=== PATIENT | female | born 1970 | race Caucasian/White ===

== ENCOUNTER → 2018-01-11 | Outpatient (CLI) | payer BC, OTHER ==
[~2018-01-11] VITALS: Ht 170.2 cm; Wt 117.9 kg
[~2018-01-11] MED LIST: AMBIEN 5 MG TABL5 M1 PO; CLONAZEPAM 0.50.5 M1 PO; CYMBALTA60 MG PO; ESTRADIOL 1 MG T1 M1 PO; LASIX 20 MG TAB20 MG PO; LYRICA 50 MG50 MG PO; NEURONTIN 300300 M1 PO; PHENTERMINE HCL15 MG PO; PROTONIX40 M1 PO; REMICADE 1100 MG/VIA; SUMATRIPTAN SUC50 MG PO
--- NOTE | ~2018-01-11 | HPC ---
[facility] [place] [address] PAIN MANAGEMENT CONSULTATION Name: OBED CRUZ Room #: REG [facility].#: [id number] Admission: 01/11/18 Attend Phys: Reuben Spring MD Discharge: Date of : 68 Report #: [id number] THIS REPORT FOR: //name// CC: Nino Spring DATE OF SERVICE: 01/11/2018 HISTORY OF PRESENT ILLNESS: Followup visit for low back pain with radiculopathy and diffuse myofascial pain in addition to Crohn disease. The patient is here today for an epidural injection. She received an injection on 10/05/2017 and reported substantial improvement, which was sustained. She is now having recurrence of back pain and generalized achiness. Based upon her good and favorable response with a single injection in September, she is back. Today, she describes the pain in her low back radiating into her hips. It radiates all down into her Achilles. This follows an L5-S1 distribution. She also has pain in the hips. She complains of pain in addition across her low back and also neck pain with headaches. Pain score is a 6/10. Pain is exacerbated by bending, squatting, sitting for long periods of time. She does not like to walk too long and that increases her pain. We talked, however, about the importance of exercise. PAST MEDICAL HISTORY: Significant for Crohn disease, frequent diarrhea. She has intermittent abdominal pain. She has suffered in the past from depression and emotional problems, insomnia and nervousness. MEDICATIONS: Reviewed and reconciled. SOCIAL HISTORY: She denies use of tobacco or alcohol. She works as a acute care clinical nurse specialist. 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 Her pain impact scores are quite high. She scores 57/70 suggesting that in every category, she has interference of day-to-day activities. Hopefully, this will improve with pain treatment, but she also will need to work on wellness behaviors which at this point I think are really necessary involving exercise and weight loss. PHYSICAL EXAMINATION: GENERAL: She is a isaiah 47-year-old, always smiling. VITAL SIGNS: Blood pressure 125/85, heart rate 82, respirations 16. She is 5 feet 7 inches with a weight of 250 pounds for a BMI of 39.1. MUSCULOSKELETAL: She is able to move independently from sitting to standing [facility] [address] [place] [address] PAIN MANAGEMENT CONSULTATION Name: ANTHONYSHAYYOBED Magui Room #: REG [facility]#: [id number] Admission: 01/11/18 Attend Phys: Reuben Spring MD Discharge: Date of : 68 Report #: [id number] position, walks without antalgic features. She has pain across her low back with forward flexion and extension. Straight leg raising is mildly positive bilaterally. She has tenderness over the sacroiliac joint. She has tenderness across the lumbosacral segments. She has diffuse myofascial pain. IMPRESSION: 1. Chronic low back pain with radiculopathy. 2. Crohn disease, on Remicade. 3. Debility and obesity. She needs to exercise more and we discussed at previous visit. 4. History of depression, situational. RECOMMENDATION: Epidural steroid injection under fluoroscopic guidance. PROCEDURE: She was taken to fluoroscopic suite. She was placed in prone position. Skin was prepped with ChloraPrep. Skin was anesthetized over L4-L5 interspace. A 20-gauge Tuohy epidural needle advanced in the epidural space with loss of resistance technique. There was no blood or CSF aspirated. A 1 mL of Omnipaque was injected. Good spread of dye observed in the epidural space followed by 3 mL of 0.5% lidocaine mixed with 80 mg of triamcinolone. She tolerated the procedure well, was observed for 45 minutes and discharged with a followup visit planned as needed. <ELECTRONICALLY SIGNED> By: Reuben Spring MD 01/17/18 1640 [id number] Reuben Spring MD /nt
[2018-01-11 13:58] VITALS: BP 125/87
== END | disposition home or self-care (01) ==
LOC: PAIN 11-09 07:03
DX: M54.16 Radiculopathy, lumbar region (principal); M79.1 Myalgia; K50.90 Crohn's disease, unspecified, without complications; F32.9 Major depressive disorder, single episode, unspecified; Z68.39 Body mass index [BMI] 39.0-39.9, adult; E66.9 Obesity, unspecified

== ENCOUNTER → 2018-05-14 | Outpatient (CLI) | payer BC, OTHER ==
[~2018-05-14] VITALS: Ht 170.2 cm; Wt 115.4 kg
--- NOTE | ~2018-05-14 | HPC ---
[facility] [place] [address] PAIN MANAGEMENT CONSULTATION Name: OBED CRUZ Room #: REG [facility].#: [id number] Admission: 05/14/18 Attend Phys: Timothy Garcia DO Discharge: Date of : 68 Report #: [id number] THIS REPORT FOR: //name// CC: Nino Garcia HISTORY OF PRESENT ILLNESS: The patient is a 47-year-old female. She has been seen twice in the Pain Clinic, September 2017 and December of this year. She has had 2 lumbar epidural injections at L4-L5 with excellent improvement of baseline pain. She returns to pain clinic today noting pain has begun to recur across the low back and bilateral legs into the foot. She has paresthesia in bilateral feet. She has a component of myofascial pain and history of Crohn's disease. She also notes some increasing pain in her right knee. Notes going up or downstairs exacerbate some pain here. She has some chronic Achilles tendinitis. She works as a special educational psychology teacher, has continued to work despite pain. Pain impact score is fairly high as pain does interfere with function; however, she continued to work despite pain. PHYSICAL EXAMINATION: GENERAL: Notes a pleasant 47-year-old female. VITAL SIGNS: BMI is 39 kilograms per meter squared. Vital signs stable as noted in the EMR. NEUROLOGICAL: Cranial nerves 2 through 12 grossly intact. Pupils equal, react to light and accommodation. Extraocular muscles are intact. MUSCULOSKELETAL: Rises from chair using armrests with modestly antalgic gait. Trace ballottable edema in the right knee. The ligaments appear intact. There is no crepitance with patellar deviation, simply subjective pain with weightbearing on steps. Her gait is generally tandem and modestly positive straight leg raise bilaterally. Symptoms little worse on the right than the left. Plantar flexion strength is modestly diminished. DIAGNOSTIC STUDIES: There are no recent diagnostic studies available to evaluate. ASSESSMENT: 1. Symptomatic lumbar radiculopathy by clinical exam and history. She has had excellent greater than 70% relief for multiple months following 2 prior injections at L4-L5. 2. Component of lumbar spondylosis with some axial back pain. 3. Degenerative joint disease, right knee. The patient will be referred to [facility]. RECOMMENDATION: Epidural injection under fluoroscopy today. Follow up simply as needed. Did refer to physical therapy for some core strengthening, range of motion and general fitness exercises. [address] [address] PAIN MANAGEMENT CONSULTATION Name: OBED CRUZ Room #: REG [facility] Cyn[facility]#: [id number] Admission: 05/14/18 Attend Phys: Timothy Garcia DO Discharge: Date of : 68 Report #: [id number] PROCEDURE: Lumbar epidural injection under fluoroscopy. PROCEDURE: Lumbar epidural steroid injection. PROCEDURE NOTE: After both written and informed consent to include risk of spinal cord damage, increased pain, weakness and dural puncture, the patient was taken to the fluoroscopy suite, placed in the prone position. After sterile prep and drape, a skin wheal with lidocaine was raised. A 4-1/2 inch 20-gauge epidural Tuohy needle was inserted in the midline at L4-L5 with good loss to resistance. Negative aspiration for cerebrospinal fluid or blood was noted. Then 1 mL of Omnipaque under biplanar fluoroscopy showed good spread within the epidural space. This was followed with 80 mg of triamcinolone plus 1 mL of 1.5% preservative-free Xylocaine, 0.5 mL Xylocaine was then injected to flush the needle; it was removed. The patient was monitored for an appropriate period of time and discharged in good and stable condition. <ELECTRONICALLY SIGNED> By: Timothy Garcia DO 05/16/18 0725 [id number] Timothy Garcia DO /nt
[2018-05-14 12:45] VITALS: BP 115/72
== END | disposition home or self-care (01) ==
LOC: PAIN 06:42
DX: M47.26 Other spondylosis with radiculopathy, lumbar region (principal); M17.11 Unilateral primary osteoarthritis, right knee; G89.29 Other chronic pain; M79.1 Myalgia; K50.90 Crohn's disease, unspecified, without complications; Z88.0 Allergy status to penicillin; Z98.890 Other specified postprocedural states; Z79.899 Other long term (current) drug therapy

== ENCOUNTER → 2018-09-06 | Outpatient (CLI) | payer BC, OTHER ==
[~2018-09-06] VITALS: Ht 170.2 cm; Wt 111.1 kg
--- NOTE | ~2018-09-06 | HPC ---
[facility] [place] [address] PAIN MANAGEMENT CONSULTATION Name: OBED CRUZ Room #: REG [facility].#: [id number] Admission: 09/06/18 Attend Phys: Reuben Spring MD Discharge: Date of : 68 Report #: [id number] THIS REPORT FOR: //name// CC: Nino Spring REASON FOR VISIT: Followup visit for chronic low back pain with radiculopathy. HISTORY OF PRESENT ILLNESS: The patient returns to pain clinic today in followup, reporting recurrence of low back pain with radiculopathy. She had an excellent response to her last epidural injection performed in April, which has been almost 4 months. Pain has gradually returned over the course of the last month. Looking back through her records, it appears that she has had a good response with almost every epidural with similar duration of response of nearly 4 months in between visits. She would like another epidural injection today. I reviewed her previous injections. We have injected her at the L4-L5 level. Pain is essentially the same as before and we anticipate repeating injection at the same level with good response. MEDICATIONS: All medications reviewed and reconciled. Also noted on the electronic medical record with no changes. ALLERGIES: She is allergic to PENICILLIN. 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 She is off work for the rest of the day. She is able to function at a much higher level after receiving injection. I did not provide opioid medications or any sort of medication for her. PHYSICAL EXAMINATION: This is a very pleasant, outgoing female. Her blood pressure 111/85, heart rate 87. She moves from sitting to standing position, walks without antalgic features. She has mild pain and tenderness across the lumbosacral segment. Straight leg raising is noted to be positive bilaterally. As before, pain appears to be slightly worse on the right than the left. IMPRESSION: Chronic low back pain with radiculopathy. RECOMMENDATIONS: Repeat epidural injection under fluoroscopic guidance. She would like to avoid medication or surgical consultation. She was taken to fluoroscopic suite, placed prone, skin prepped with ChloraPrep. Skin was anesthetized over the L4-L5 interspace. A 20-gauge Tuohy epidural needle was advanced in the epidural space with loss of resistance technique. There was no blood or CSF aspirated. 1 mL of Omnipaque was injected. Good spread of dye observed followed by 3 mL of 0.5% lidocaine mixed with [address] [address] PAIN MANAGEMENT CONSULTATION Name: OBED CRUZ Magui [id number] Admission: 09/06/18 Attend Phys: Reuben Spring MD Discharge: Date of : 68 Report #: [id number] triamcinolone. She tolerated the procedure well and was observed for 45 minutes and discharged. Follow up as needed. By: [id number] MD ary Akbar
[2018-09-06 12:56] VITALS: BP 113/85
== END | disposition home or self-care (01) ==
LOC: PAIN 07:11
DX: M54.16 Radiculopathy, lumbar region (principal); G89.29 Other chronic pain; Z85.828 Personal history of other malignant neoplasm of skin; Z98.890 Other specified postprocedural states; Z88.0 Allergy status to penicillin